=== PATIENT | male | born 1950 | race Caucasian/White ===

== ENCOUNTER 2016-12-28 21:18 | Emergency (ER) | payer OTHER ==
[2016-12-28 21:31] VITALS: BP 134/59
--- NOTE | 2016-12-28 21:52 | UC ---
Upper Extremity HPI - HPI Summary HPI Summary: Subungual hematoma left hand fifth digit, increasing since he crushed his finger under a tractor seat early this afternoon. - History of Current Complaint Chief Complaint: Laly Stated Complaint: LEFT PINKY INJURY Time Seen by Provider: 12/28/16 21:46 Hx Obtained From: Patient Onset/Duration: Sudden Onset, Lasting Hours Severity Initially: Moderate Severity Currently: Moderate Location Of Pain: Is Discrete @ - left fifth finger nailbed Aggravating Factor(s): Movement Alleviating Factor(s): Nothing Associated Signs And Symptoms: Positive: Other - subungual hematoma - Risk Factors Non-Orthopedic Risk Factor: Negative DVT Risk Factors: Negative Septic Arthritis Risk Factor: Negative - Allergies/Home Medications Allergies/Adverse Reactions: Allergies Allergy/AdvReac Type Severity Reaction Status Date / Time Bee Venom Allergy Hives Verified 12/28/16 21:24 SULFA DRUGS Allergy SCRATCHY Uncoded 12/28/16 21:24 EYES PMH/Surg Hx/FS Hx/Imm Hx Cardiovascular History: Hypertension - Surgical History Surgical History: Yes Surgery Procedure, Year, and Place: T&A-AGE. APPENDECTOMY- A TEEN. RIGHT BICEP TENDON TRANSFER-1973. [facility] OSTEOCH[facility]AL [facility]NEE[facility]. Bilateral CARPAL TUNNEL REPAIR-[facility] [place] - Social History Lives: With Family Alcohol Use: Rare Substance Use Type: None Smoking Status (MU): Never Smoked Tobacco - Immunization History Most Recent Influenza Vaccination: not this season Most Recent Tetanus Shot: WITH 5 YEARS Review of Systems Constitutional: Negative Skin: Negative Eyes: Negative ENT: Negative Respiratory: Negative Cardiovascular: Other - treated hypertension, no heart disease. Gastrointestinal: Negative Genitourinary: Negative Motor: Negative Neurovascular: Negative Musculoskeletal: Other: - finger deformities from history of multiple finger fractures. Neurological: Negative Psychological: Negative All Other Systems Reviewed And Are Negative: Yes Physical Exam Triage Information Reviewed: Yes Appearance: Well-Appearing, Pain Distress - mild, Obese Vital Signs: Initial Vital Signs Temp 98.4 F 12/28/16 21:25 Pulse 62 12/28/16 21:25 Resp 16 12/28/16 21:25 BP 134/59 12/28/16 21:25 Pulse Ox 97 12/28/16 21:25 Respiratory: Positive: Lungs clear, Normal breath sounds Cardiovascular: Positive: RRR, No Murmur Psychological Exam: Normal Skin Exam: Other - left finger with subungual hematoma. Procedures - Nail Trepanation Method of Drainage: nail cauterized - drained freely Sterile Dressing Applied: Yes Finger Splint: No Upper Extremity Course/Dx - Course Course Of Treatment: nail trephination left hand fifth digit. - Differential Dx/Diagnosis Differential Diagnosis/HQI/PQRI: Other - subungal hematoma Provider Diagnoses: subungual hematoma. Discharge - Discharge Plan Condition: Stable Disposition: HOME Patient Education Materials: Subungual Hematoma (ED) Additional Instructions: keep the nail covered and clean.
== END 2016-12-28 22:12 | disposition home or self-care (01) ==
LOC: UCCORT 21:18
DX: S60.152A Contusion of left little finger with damage to nail, initial encounter (principal); I10 Essential (primary) hypertension; W23.1XXA Caught, crushed, jammed, or pinched between stationary objects, initial encounter; Y92.9 Unspecified place or not applicable; Z88.2 Allergy status to sulfonamides
CPT/HCPCS: 11740; 99211; G0463

== ENCOUNTER 2018-01-30 12:13 | Emergency (ER) | payer MEDICARE, OTHER ==
[2018-01-30 12:44] VITALS: BP 125/66
--- NOTE | 2018-01-30 13:05 | ED ---
Adult Trauma - HPI Summary HPI Summary: 67 yr old male with the complaint of upper midline back pain, and tingling in both hand at the digits 4/5. He fell backwards over a log when he was cutting fire wood. Denies bowel or bladder incontinence. No numbness or weakness in the legs. The patient came here to urgent care with family. No LOC, no head injury. - History of Current Complaint Chief Complaint: UCBackPain Stated Complaint: SHOULDER/BACK INJ Time Seen by Provider: 01/30/18 12:46 Pain Intensity: 10 - Allergy/Home Medications Allergies/Adverse Reactions: Allergies Allergy/AdvReac Type Severity Reaction Status Date / Time MS Bee Venom [Bee Venom] Allergy Hives Verified 01/30/18 12:35 SULFA DRUGS Allergy SCRATCHY Uncoded 01/30/18 12:35 EYES PMH/Surg Hx/FS Hx/Imm Hx Cardiovascular History: Reports: Hx Hypertension - ON MEDICATION FOR Respiratory History: Reports: Other Respiratory Problems/Disorders - PARTIALLY COLLAPSED LUNG WHEN OFF ROOF ABOUT 10 YEARS AGO GI History: Reports: Hx Gastroesophageal Reflux Disease - ON MEDICATION FOR Musculoskeletal History: Reports: Hx Arthritis - FINGERS, Hx Bursitis - BOTH HIPS, Other Musculoskeletal History - SCIATICA AND CALCIFICATION OF CARTILAGE IN THE V[place]RAE Sensory History: Reports: Hx Cataracts - BOTH EYES, Hx Contacts or Glasses - GLASSES Denies: Hx Hearing Aid Opthamlomology History: Reports: Hx Cataracts - BOTH EYES, Hx Contacts or Glasses - GLASSES - Surgical History Surgery Procedure, Year, and Place: T&A-AGE. APPENDECTOMY- A TEEN. RIGHT BICEP TENDON TRANSFER-1973. ARTHROSCOPIC [place]. OSTEOCHONDROMAL REMOVED RIGHT KNEE-[place]. Bilateral CARPAL [place] [place]x Anesthesia Reactions: No Infectious Disease History: No Infectious Disease History: Reports: Hx Hepatitis - B- ANTIGENS- BUT HAS NEVER BEEN DIAGNOSED- THOUGHT BE EXPOSED IN 70'S-80'S Denies: Traveled Outside the [place] in Last 30 Days - Family History Known Family History: Positive: None - Social History Alcohol Use: Rare Substance Use Type: Reports: None Smoking Status (MU): Never Smoked Tobacco Review of Systems Constitutional: Negative Positive: Other - upper back pain Positive: Paresthesia, Numbness - both hands in the 4/5 digits All Other Systems Reviewed And Are Negative: Yes Physical Exam Triage Information Reviewed: Yes Vital Signs On Initial Exam: Initial Vitals Temp Pulse Resp BP Pulse Ox 97.9 F 61 20 125/66 97 01/30/18 12:36 01/30/18 12:36 01/30/18 12:36 01/30/18 12:36 01/30/18 12:36 Vital Signs Reviewed: Yes Appearance: Positive: Well-Appearing, No Pain Distress Skin: Positive: Warm, Skin Color Reflects Adequate Perfusion Head/Face: Positive: Normal Head/Face Inspection Eyes: Positive: EOMI ENT: Positive: Normal ENT inspection Neck: Positive: Supple, Nontender Respiratory/Lung Sounds: Positive: Clear to Auscultation, Breath Sounds Present Cardiovascular: Positive: RRR. Negative: Murmur Abdomen Description: Positive: Nontender Musculoskeletal: Positive: Strength/ROM Intact Neurological: Positive: Alert, Oriented to Person Place, Time, CN Intact II-III , Normal Gait, Speech Normal. Negative: Sensory/Motor Intact - tingling in 4/5 digits both hands - Jarret Coma Scale Best Eye Response: 4 - Spontaneous Best Motor Response: 6 - Obeys Commands Best Verbal Response: 5 - Oriented Coma Scale Total: 15 Diagnostics - Vital Signs Vital Signs Temp Pulse Resp BP Pulse Ox 01/30/18 12:36 97.9 F 61 20 125/66 97 - Laboratory Lab Statement: Any lab studies that have been ordered have been reviewed, and results considered in the medical decision making process. Adult Trauma Course/Dx - Course Course Of Treatment: 67 yr old male with upper back pain and numbness in medial fingers bilateral after falling in the [place]. Transfer center [facility] and the patient will be sent there for further evalution. The patient was promplty put in [place] [facility] ambulance called for transport to [facility] in [place] for trauma, spine evaluation. - Diagnoses Provider Diagnoses: Thoracic spine pain, Numbness of fingers of both hands Discharge - Sign-Out/Discharge Documenting (check all that apply): Patient Departure All imaging exams completed and their final reports reviewed: No Studies - Discharge Plan Condition: Good Disposition: TRANS HIGHER LVL OF CARE FAC Referrals: Cooper Reilly MD [Primary Care Provider] - - Billing Disposition and Condition Condition: GOOD Disposition: Trans Higher Lvl of Care Fac
== END 2018-01-30 13:30 | disposition short-term general hospital (02) ==
LOC: UCCORT 12:13
DX: M54.6 Pain in thoracic spine (principal); W18.09XA Striking against other object with subsequent fall, initial encounter; Y93.89 Activity, other specified; Y92.9 Unspecified place or not applicable; Z88.8 Allergy status to other drugs, medicaments and biological substances; I10 Essential (primary) hypertension; R20.0 Anesthesia of skin
CPT/HCPCS: 99214; G0463

== ENCOUNTER 2018-08-10 11:22 | Emergency (ER) | payer MEDICARE, OTHER ==
[2018-08-10 13:18] VITALS: BP 151/76
[2018-08-10] MEDS ORDERED: Lidocaine 1% MPF* 2 ML VIAL INJ ONE (13:54)
--- NOTE | 2018-08-10 13:54 | UC ---
UC General HPI - HPI Summary HPI Summary: PT CUT HIS L INDEX FINGER ON A BROKEN SAW BLADE THIS AM. NO FB SENSATION OR LIMITED ROM. LAST TETANUS WAS WITHIN 10 YEARS. - History of Current Complaint Chief Complaint: UCLaceration Stated Complaint: LEFT INDEX FINGER LACERATION Time Seen by Provider: 08/10/18 13:19 Hx Obtained From: Patient Onset/Duration: Sudden Onset Timing: Constant Pain Intensity: 0 Associated Signs & Symptoms: Negative: Edema, Fever, Weakness - Allergy/Home Medications Allergies/Adverse Reactions: Allergies Allergy/AdvReac Type Severity Reaction Status Date / Time bee venom protein (honey bee) Allergy Hives Verified 08/10/18 13:13 SULFA DRUGS Allergy SCRATCHY Uncoded 01/30/18 12:35 EYES PMH/Surg Hx/FS Hx/Imm Hx Cardiovascular History: Hypertension GI/ History: Gastroesophageal Reflux - Surgical History Surgical History: Yes Surgery Procedure, Year, and Place: T&A-AGE. APPENDECTOMY- A TEEN. RIGHT BICEP TENDON TRANSFER-1973. ARTHROSCOPIC RIGHT KNEE SURGERY-[place]. OSTEOCHONDROMAL REMOVED RIGHT KNEE-[place]. Bilateral CARPAL TUNNEL REPAIR-[facility] - Family History Known Family History: Positive: None - Social History Occupation: Retired Alcohol Use: Rare Substance Use Type: None Smoking Status (MU): Never Smoked Tobacco - Immunization History Most Recent Influenza Vaccination: not this season Most Recent Tetanus Shot: WITH 5 YEARS Hx Tetanus, Diphtheria Vaccination: Yes Vaccination Up to Date: Yes Review of Systems All Other Systems Reviewed And Are Negative: Yes Physical Exam Triage Information Reviewed: Yes Appearance: Well-Appearing Vital Signs: Initial Vital Signs Temp 97.8 F 08/10/18 13:15 Pulse 60 08/10/18 13:15 Resp 18 08/10/18 13:15 BP 151/76 08/10/18 13:15 Pulse Ox 96 08/10/18 13:15 Vital Signs Reviewed: Yes Eyes: Positive: Conjunctiva Clear ENT: Positive: Normal ENT inspection Respiratory: Positive: Lungs clear Cardiovascular: Positive: RRR Abdomen Description: Positive: Nontender Musculoskeletal: Positive: Other: - L dorsal proximal index finger has 1cm laceration. Fat seen but no active bleeding. No muscle, tendon or ligamnet damage seen. Finger has full s/v/m function. Neurological: Positive: Alert Psychological: Positive: Age Appropriate Behavior Skin Exam: Normal Course/Dx - Course Course Of Treatment: Xray advised given nature of wound but pt refused. PROCEDURE: time out. betadine then local with 1% lidocaine 1.5ml. explored and no FB or tendon damage seen. irrigated with sterile NaCl then prep with betadine. site close with 5-0 nylon and 1 simple plus 1 horizontal mattress stitch. sterile technique used. pt tolerated well. bandage applied. full v/m intact after. - Diagnoses Provider Diagnosis: Laceration of left index finger Discharge - Sign-Out/Discharge Documenting (check all that apply): Patient Departure All imaging exams completed and their final reports reviewed: No Studies - Discharge Plan Condition: Stable Disposition: HOME Patient Education Materials: Care For Your Stitches (DC) Referrals: Cooper Reilly MD [Primary Care Provider] - Additional Instructions: FOLLOW UP HERE OR WITH PRIMARY CARE IN 7-10 DAYS FOR SUTURE REMOVAL - Billing Disposition and Condition Condition: STABLE Disposition: Home - Attestation Statements Provider Attestation: I was available for consult. This patient was seen by the MARYJANE. The patient was not presented to, seen by, or examined by me. -Megan
== END 2018-08-10 14:18 | disposition home or self-care (01) ==
LOC: UCCORT 11:22
DX: S61.211A Laceration without foreign body of left index finger without damage to nail, initial encounter (principal); W45.8XXA Other foreign body or object entering through skin, initial encounter; W22.8XXA Striking against or struck by other objects, initial encounter; Y92.9 Unspecified place or not applicable; I10 Essential (primary) hypertension; K21.9 Gastro-esophageal reflux disease without esophagitis; Z88.2 Allergy status to sulfonamides; Z91.030 Bee allergy status
CPT/HCPCS: 12001; 99211; G0463

== ENCOUNTER 2019-05-11 11:17 | Emergency (ER) | payer MEDICARE, OTHER ==
[2019-05-11 12:09] VITALS: BP 168/82
[2019-05-11] MEDS ORDERED: Lidocaine 1% MPF ** 5 ML VIAL INJ ONE (12:31)
[2019-05-11] MEDS ORDERED: Acetaminophen TAB* 325 MG PO ONE (12:32)
--- NOTE | 2019-05-11 13:37 | UC ---
Laceration HPI - HPI Summary HPI Summary: Patient is a 68yo male presenting with L middle finger laceration that occurred this morning at 11am while using a grinding wheel while working on a car. Patient states is bled immediately but he applied pressure and raised it above his head to get it to stop. Notes throbbing pain. Denies decreased ROM. Denies numbness and tingling. Notes that he received tetanus booster less than 5 years ago. - History Of Current Complaint Chief Complaint: UCLaceration Stated Complaint: L MIDDLE FINGER LAC. Hx Obtained From: Patient Severity: Moderate Pain Intensity: 6 Pain Scale Used: 0-10 Numeric - Allergies/Home Medications Allergies/Adverse Reactions: Allergies Allergy/AdvReac Type Severity Reaction Status Date / Time bee venom protein (honey bee) Allergy Hives Verified 05/11/19 12:03 SULFA DRUGS Allergy SCRATCHY Uncoded 05/11/19 12:03 EYES PMH/Surg Hx/FS Hx/Imm Hx Cardiovascular History: Hypertension GI/ History: Gastroesophageal Reflux - Surgical History Surgical History: Yes Surgery Procedure, Year, and Place: T&A-AGE. APPENDECTOMY- A TEEN. RIGHT BICEP TENDON TRANSFER-1973. ARTHROSCOPIC RIGHT KNEE SURGERY-[place]. OSTEOCHONDROMAL REMOVED RIGHT KNEE-[place]. Bilateral CARPAL TUNNEL REPAIR-[facility] [place] - Family History Known Family History: Positive: None - Social History Occupation: Retired Alcohol Use: Rare Substance Use Type: None Smoking Status (MU): Never Smoked Tobacco - Immunization History Most Recent Influenza Vaccination: not this season Most Recent Tetanus Shot: WITH 5 YEARS Hx Tetanus, Diphtheria Vaccination: Yes Vaccination Up to Date: Yes Review of Systems All Other Systems Reviewed And Are Negative: No Skin: Positive: Other - L middle finger laceration Respiratory: Positive: Negative Cardiovascular: Positive: Negative Gastrointestinal: Positive: Negative Musculoskeletal: Positive: Negative. Negative: Decreased ROM Neurological: Positive: Negative. Negative: Paresthesia, Numbness Physical Exam Triage Information Reviewed: Yes Appearance: Well-Appearing, No Pain Distress, Well-Nourished Vital Signs: Initial Vital Signs Temp 98.5 F 05/11/19 12:04 Pulse 65 05/11/19 12:04 Resp 15 05/11/19 12:04 BP 168/82 05/11/19 12:04 Pulse Ox 96 05/11/19 12:04 Vital Signs Reviewed: Yes Eyes: Positive: Conjunctiva Clear ENT: Positive: Hearing grossly normal Neck: Positive: Supple Respiratory: Positive: No respiratory distress Cardiovascular: Positive: Pulses Normal - strong radial pulses, Brisk Capillary Refill - <2 sec Musculoskeletal: Positive: Strength Intact, ROM Intact - L middle finger flexion and extension intact, No Edema Neurological Exam: Other - sensation grossly intact Neurological: Positive: Alert Psychological: Positive: Age Appropriate Behavior Skin: Positive: Other - ~3.5cm nonbleeding linear laceration noted of dorsal middle phalanx of L middle finger Laceration Repair - Laceration Repair L middle finger Description: Linear Laceration Size After Repair: Length (cm) - 3.5cm, Depth (mm) - 0.5mm Contamination/FB Removal: 3 small pieces of hard black material removed Modified For Repair: No Anesthesia Used: 1.0% Lido Cleansing Completed Via Routine Prep: Yes Irrigation With Pressure Irrigation Device: Yes Closure Material: Sutures - 6 sutures Closure Method: Single Layer Suture Of: Skin Suture Type: Prolene - 4-0 Laceration Course/Dx - Course/Dx Course Of Treatment: Wound was pressure irrigated with copious amount of NS. 3 small pieces of hard black material removed with pressured irrigation by RON Jung and myself. I anesthetized with 1% lido and searched for other foreign bodies before repairing laceration with 6 sutures. Patient tolerated procedure well. Full ROM of L middle finger intact. Educated on s/s of infection and instructed to return or go to ED if any occur. Educated on wound and suture care and instructed to follow up after 10-12 days for removal of sutures. Patient voiced understanding and agreed with treatment plan. - Diagnosis Provider Diagnosis: Laceration of left middle finger Discharge ED - Sign-Out/Discharge Documenting (check all that apply): Patient Departure All imaging exams completed and their final reports reviewed: No Studies - Discharge Plan Condition: Stable Disposition: HOME Patient Education Materials: Care For Your Stitches (ED), Finger Laceration (ED ) Referrals: Cooper Reilly MD [Primary Care Provider] - If Needed Additional Instructions: You received 6 stitches today. Keep your stitches clean and dry for the next 48 hours. You may change the dressing. After the first 48 hours, you may gently wash with soap and warm water daily. Keep the finger splint on for the duration of your healing to avoid opening the wound up. Your stitches will not absorb. Return or follow up with your primary care provider in 10-12 days to have your stitches removed. You may take over the counter pain medications as directed for pain relief. Return or go to the emergency department if you notice any redness, swelling, fluid drainage, fever, or nausea and vomiting. - Billing Disposition and Condition Condition: STABLE Disposition: Home
== END 2019-05-11 13:29 | disposition home or self-care (01) ==
LOC: UCCORT 11:17
DX: S61.213A Laceration without foreign body of left middle finger without damage to nail, initial encounter (principal); I10 Essential (primary) hypertension; Z88.2 Allergy status to sulfonamides; Z91.030 Bee allergy status; W23.0XXA Caught, crushed, jammed, or pinched between moving objects, initial encounter; Y92.810 Car as the place of occurrence of the external cause
CPT/HCPCS: 12002; 99212; A9270-GY; G0463

== ENCOUNTER 2021-10-29 15:25 | Inpatient (IN) ==
[2021-10-29 18:53] LABS: ABS Eosinophils 0.3 10^3/ul (0-0.6); ABS Lymphocytes 0.9 10^3/ul (1.0-4.8); ABS Monocytes 0.8 10^3/ul (0-0.8); ABS Neutrophils 3.9 10^3/ul (1.5-7.7); Hematocrit 38 % (42-52); Hemoglobin 12.8 g/dL (14.0-18.0); Lymphocyte % 15.7 %; Mean Corpuscular HGB Conc 34 g/dL (31-36); Mean Corpuscular Hemoglobin 29 pg (27-31); Mean Corpuscular Volume 84 fL (80-94); Mean Platelet Volume 7.8 fL (7.4-10.4); Platelet Count 240 10^3/uL (150-450); Red Blood Count 4.47 10^6 /uL (4.18-5.48); Red Cell Distribution Width 13 % (10-15)
[2021-10-29 19:00] LABS: INR 1.31 (0.86-1.15)
[2021-10-29 19:46] LABS: Albumin 3.6 g/dL (3.2-5.2); Albumin/Globulin Ratio 1.7 (1-3); Calcium 8.6 mg/dL (8.6-10.3); Globulin 2.1 g/dL (2-4); Potassium 4.2 mmol/L (3.5-5.0); Total Bilirubin 1.2 mg/dL (0.2-1.0); Total Protein 5.7 g/dL (6.4-8.9); eGFR CKD-EPI 87.8 (>60)
[2021-10-29] MEDS: Morphine 2 MG/ML SYRINGE IV PRN (20:41)
[2021-10-30] MEDS: Morphine 2 MG/ML SYRINGE IV PRN ×2 (10:20→19:36)
[2021-10-31] MEDS ORDERED: Magnesium Hydroxide LIQ 30 ML UDC PO PRN (10:56)
[2021-10-31] MEDS ORDERED: Senna TAB 8.6 mg TAB PO PRN (10:56)
[2021-10-31] MEDS: Polyethylene Glycol 3350 17 GM PACKET PO SCH (11:57)
[2021-10-31] MEDS: Morphine 2 MG/ML SYRINGE IV PRN (22:43)
[2021-11-01] MEDS: Polyethylene Glycol 3350 17 GM PACKET PO SCH (08:55)
[2021-11-01] MEDS: Senna TAB 8.6 mg TAB PO SCH (20:20)
[2021-11-02] MEDS: Polyethylene Glycol 3350 17 GM PACKET PO SCH (08:06)
[2021-11-02] MEDS ORDERED: PAIN RELIEVING RUB (MENTHOL/SALICYLATE) 1 APPLIC TUBE TOPICAL PRN (09:20)
[2021-11-02 09:51] LABS: ABS Eosinophils 0.2 10^3/ul (0-0.6); ABS Neutrophils 4.6 10^3/ul (1.5-7.7); Eosinophil % 3.5 %; Hematocrit 38 % (42-52); Hemoglobin 13.1 g/dL (14.0-18.0); Lymphocyte % 14.1 %; Mean Corpuscular HGB Conc 34 g/dL (31-36); Mean Corpuscular Hemoglobin 29 pg (27-31); Mean Corpuscular Volume 84 fL (80-94); Mean Platelet Volume 7.3 fL (7.4-10.4); Platelet Count 274 10^3/uL (150-450); Red Blood Count 4.57 10^6 /uL (4.18-5.48); Red Cell Distribution Width 13 % (10-15); White Blood Count 6.8 10^3/uL (3.5-10.8)
[2021-11-02 10:56] LABS: Calcium 8.9 mg/dL (8.6-10.3); Magnesium 2.1 mg/dL (1.9-2.7); Potassium 4.8 mmol/L (3.5-5.0); eGFR CKD-EPI 87.8 (>60)
[2021-11-02] MEDS ORDERED: Magnesium CITRATE LIQ 300 ML BTL PO ONE (11:10)
[2021-11-02] MEDS: Senna TAB 8.6 mg TAB PO SCH (20:42)
[2021-11-03 07:06] VITALS: BP 117/71
[2021-11-03] MEDS: Polyethylene Glycol 3350 17 GM PACKET PO SCH (07:13)
== END 2021-11-03 11:30 | disposition home or self-care (01) | DRG 552 ==
LOC: ED 15:25 → EDHOLD 15:25 → SSU 22:58 → SUATTDRO 10-31 13:07
PROVIDERS: ADMIT Internal Medicine; ATTEND Internal Medicine